=== PATIENT | male | born 1985 | race American Indian/Alaskan Native ===

== ENCOUNTER 2020-02-04 14:04 | Emergency (ER) | payer SELFPAY ==
[2020-02-04 14:27] VITALS: BP 100/64
--- NOTE | 2020-02-04 17:19 | Emergency Department Report ---
Chief Complaint: Fever Stated Complaint: FEVER Time Seen by Provider: 02/04/20 16:42 - HPI History of Present Illness: pt is a 34 yo male who presents to the ED with c/o subjective fever that began 4 days ago. he states that initially he thought it might be his sinuses and it improved after using Claritin. he denies any vomiting, diarrhea, cough, no abd pain, CP, SOB no sore throat or ear pain. states he took ibuprofen 800 mg at 12:30PM. no PMhx. no allergies to meds. no sick contacts. no recent travel. +smoker. Vitals are completely normal Patient is afebrile, no tachycardia, no hypoxia On exam: Non toxic appearing, no acute distress atraumatic, normocephalic normal appearance of the eyes, PERRL, EOMI, no periorbital edema or ecchymosis moist mucus membranes, normal TMs and canals bilaterally, normal oropharynx, normal nasal turbinates bilaterally, no sinus tenderness to palpation, no purulent drainage regular heart rate and rhythm, no gallops, no rubs, no murmurs breath sounds are clear bilaterally, no w/r/r, no stridor, no accessory muscle use, no respiratory distress A&O x4, no focal neuro deficit skin is warm, dry, intact Patient is presenting with subjective fever He has no fever in the emergency department He has clear breath sounds bilaterally, no hypoxia, no tachycardia He has no clinical signs and symptoms of pneumonia Normal oropharynx, normal TMs and canals, no signs of acute bacterial sinusitis Patient is most likely presenting with viral syndrome Given that he is having a subjective fever during the COVID-19 pandemic, discussed with patient that he would need to self quarantine for 2 weeks Discussed in detail with patient strict return precautions and he verbalized understanding Discussed with patient that he could discuss with a primary care physician or the health department about COVID 19 testing Advised patient please increase your fluid intake over the next several days. may take tylenol as needed for fever (100.4 or greater). get plenty of rest. follow up with a primary care doctor in the next 2-3 days. please self quarantine for 2 weeks. do not go out in public. please wear a mask if around others at home. wash your hands frequently. wipe every thing down. return to the emergency room for any new or worsening symptoms including but not limited to shortness of breath, difficulty breathing, unable to tolerate by mouth intake, chest pain, etc. Medical screening performed and there is no threat to life or limb at this time - Exam Vital Signs: Vital Signs 02/04/20 14:26 Temperature 98.0 F Pulse Rate 71 Respiratory 18 Rate Blood Pressure 100/64 O2 Sat by Pulse 99 Oximetry MSE screening note: Focused history and physical exam performed. ED Disposition for MSE Clinical Impression: Subjective fever Disposition: Z- MED SCREENING EXAM-LEFT Is pt being admited?: No Does the pt Need Aspirin: No Condition: Stable Instructions: COVID-19, Viral Syndrome (ED) Additional Instructions: please increase your fluid intake over the next several days. may take tylenol as needed for fever (100.4 or greater). get plenty of rest. follow up with a primary care doctor in the next 2-3 days. please self quarantine for 2 weeks. do not go out in public. please wear a mask if around others at home. wash your hands frequently. wipe every thing down. return to the emergency room for any new or worsening symptoms including but not limited to shortness of breath, difficulty breathing, unable to tolerate by mouth intake, chest pain, etc. Referrals: FRANK JAVED MD [Staff Physician] - 2-3 Days [facility] [Provider Group] - 2-3 Days [facility] [Outside] - 2-3 Days Time of Disposition: 17:19 Print Language: CITIZEN [place]
== END 2020-02-04 17:56 | disposition left against medical advice (07) ==
LOC: ED 14:04
DX: R51 Headache (principal); Z53.21 Procedure and treatment not carried out due to patient leaving prior to being seen by health care provider